=== PATIENT | female | born 1975 | race Caucasian/White ===

== ENCOUNTER 2018-01-09 11:13 | Inpatient (IN) | payer BC ==
[~2018-01-09] VITALS: Ht 165.1 cm; Wt 68.3 kg
[2018-01-09 12:15] VITALS: BP 115/75
[2018-01-09 12:35] VITALS: BP 115/75
[2018-01-09] MEDS ORDERED: CEFTRIAXONE SOD 1 GM VIAL IV SCH (13:45)
[2018-01-09] MEDS ORDERED: CLINDAMYCIN PHOS 900MG/ 50ML 50 ML IV SCH (14:00)
[2018-01-09 14:22] LABS: BASOPHILS # (AUTO) 0.1 (0.0-0.1); BASOPHILS % 1.2 % (0.0-1.0); EOSINOPHILS # (AUTO) 0.1 (0.0-0.4); EOSINOPHILS % 2.1 % (0.0-6.0); HEMATOCRIT 36.8 % (34.2-44.1); HEMOGLOBIN 12.6 g/dL (12.0-16.0); LYMPHOCYTES # (AUTO) 2.3 (1.0-3.2); LYMPHOCYTES % 35.8 % (18.0-39.1); MEAN CORPUSCULAR HEMOGLOBIN 32.5 pg (28-32); MEAN CORPUSCULAR HGB CONC 34.2 g/dL (31-35); MEAN CORPUSCULAR VOLUME 94.8 fL (81-99); MONOCYTES # (AUTO) 0.6 (0.2-0.8); MONOCYTES % 9.5 % (4.4-11.3); NEUTROPHILS # (AUTO) 3.3 (2.1-6.9); NEUTROPHILS % 50.6 % (38.7-80.0); PLATELET COUNT 318 x10e3/uL (140-360); RED BLOOD COUNT 3.88 x10e6/uL (3.6-5.1); RED CELL DISTRIBUTION WIDTH 12.2 % (11.7-14.4)
[2018-01-09] MEDS: DEXTROSE 5%/LACTATED RINGERS 1,000 ML IV SCH ×2 (14:30→22:26)
[2018-01-09 14:59] LABS: ALANINE AMINOTRANSFERASE 14 IU/L (0-55); ALBUMIN 3.6 g/dL (3.5-5.0); ALBUMIN/GLOBULIN RATIO 1.2 (0.8-2.0); ALKALINE PHOSPHATASE 57 IU/L (40-150); ANION GAP 14.8 mmol/L (8-16); BLOOD UREA NITROGEN 14 mg/dL (7-26); BUN/CREATININE RATIO 19 (6-25); CALCIUM 9.5 mg/dL (8.4-10.2); CARBON DIOXIDE 29 mmol/L (22-29); CHLORIDE 100 mmol/L (98-107); CREATININE, SERUM 0.73 mg/dL (0.57-1.11); EST GLOMERULAR FILTRATION RATE > 60 ML/MIN (60-); GLUCOSE 83 mg/dL (74-118); POTASSIUM 3.8 mmol/L (3.5-5.1); SODIUM 140 mmol/L (136-145)
[2018-01-09 15:58] VITALS: BP 96/55
[2018-01-09] MEDS: VANCOMYCIN HCL 1.25 GM in SODIUM CHLORIDE 0.9% 250ML 300 ML IV SCH (17:15)
[2018-01-09] MEDS: FAMOTIDINE 20 MG TAB PO SCH (17:15)
--- NOTE | 2018-01-09 17:44 | Consultation ---
DATE OF CONSULTATION: January 09, 2018 REASON FOR CONSULTATION: Salivary gland infection, cellulitis and myositis of the face. This patient who is a very pleasant 42 year old who has a history of Sjogren syndrome and Binh's syndrome, on amiodarone, apparently 10 days ago or so or probably 2 weeks, she ramirez been having tooth problems. She went to the oral surgeon who did surgery. Apparently, he told her that there was a nerve around the tooth. He had to do extensive surgery. This was removed. But, however, she started having to severe pain. She went back to see him. He told her that there is a stone in the salivary gland after doing a CT and that it is infected. She went to see ENT, Dr. Laboy, who gave her IV Rocephin. She underwent removal of the stone, which was large. Because she had a history of Sjogren syndrome, apparently she had this for a while. She was on Rocephin and steroid along with oral clindamycin, but in spite of that it has been getting progressively worse with swelling and redness of the neck. CT scan was done and showed that she had inflammation and probably infection of the muscle around it. She was sent to the emergency room. Infectious disease was consulted. The patient said that she is having pain, as well as swelling in her right side of the neck and the jaw. Patient is being admitted and infectious disease was consulted. I do not have any other record as an outpatient. All that was from the patient. She is a very knowledgeable patient. PAST MEDICAL HISTORY: Significant for Sjogren syndrome and Binh's disease. She is seeing someone downtown. SOCIAL HISTORY: There is no smoking, drug abuse or alcohol abuse. FAMILY HISTORY: Significant for Binh's disease also. REVIEW OF SYSTEMS HEENT: She does have some headache. She had significant discomfort in her throat. There is no difficulty swallowing. Her voice is funny. Normocephalic. Not icteric. NECK: Supple. CHEST: Clear bilaterally. HEART: S1 and S2. No S3, S4 or murmur. ABDOMEN: Soft. Bowel sounds present. No tenderness. EXTREMITIES: No edema. Her white count is 6.5, hemoglobin 12. Sodium 140, potassium 3.8, creatinine 0.75. According to the patient, she has muscle infection in the back of her throat. IMPRESSIO: Pharyngitis with involvement of the muscle, failing Rocephin and clindamycin. Patient was changed to vancomycin and Zosyn. The patient is immunocompromised. Will obtain computerized tomography of the neck and face. Will await blood cultures. Will obtain vancomycin trough on the 4th dose. Will follow with you. Job#: [id number] MANUELITO
[2018-01-09] MEDS: PIPER-TAZ 3.375 GM 50 ML IV SCH (18:28)
[2018-01-09 19:20] VITALS: BP 100/53
[2018-01-09 20:00] VITALS: BP 100/53
[2018-01-09] MEDS: ACETAMINOPHEN 325 MG TAB PO PRN (20:39)
--- NOTE | 2018-01-09 22:06 | Consultation ---
DATE OF CONSULTATION: January 09, 2018 HISTORY OF PRESENT ILLNESS: This 42-year-old woman presents with a history of her a right third molar extraction approximately 3 weeks ago. She did well on immediate postoperative period, but approximately 1 week after the extraction she developed right-sided facial pain and swelling. No antibiotics were given postoperatively or after the initiation of the swelling. Subsequent workup by the oral surgeon showed a large submandibular stone and she was referred for evaluation and treatment. It was felt that the stone was possibly the etiology for the pain and swelling. On presentation to the office approximately 1 week ago, she was found have a large submandibular duct stone which was excised in the office. Subsequent pathology showed inflammatory changes only with no evidence of neoplasm. She did well for the first few hours after surgery, but then became progressively more sore and was unable to tolerate p.o. intake. She was treated with outpatient IV fluids and IV Rocephin as well as Decadronl, which was repeated on the second and third postoperative day. CT scan obtained on January 08, 2018 showed inflammatory changes within the floor of mouth, which were relatively mild and stranding of the masseter muscle, but no abscess formation. CT scan also showed complete extraction of the third molar with no evidence of bony erosion. Patient was admitted for continued IV antibiotic therapy as she had failed aggressive outpatient medical management. ASSESSMENT: Right submandibular and masseter cellulitis with no drainable abscess. PLAN: Continuation of current therapy per hospitalist and infectious disease consultants. Job#: [id number] VAS
[2018-01-10] VITALS (9 sets, daily range): BP systolic 101–128; BP diastolic 49–79
[2018-01-10] MEDS: PIPER-TAZ 3.375 GM 50 ML IV SCH ×4 (00:01→18:15)
[2018-01-10] MEDS: HYDROCODONE/APAP 5MG-325MG TAB PO PRN ×4 (00:12→21:01)
[2018-01-10 05:17] LABS: BASOPHILS # (AUTO) 0.1 (0.0-0.1); EOSINOPHILS # (AUTO) 0.2 (0.0-0.4); HEMATOCRIT 36.2 % (34.2-44.1); HEMOGLOBIN 12.7 g/dL (12.0-16.0); LYMPHOCYTES # (AUTO) 2.3 (1.0-3.2); LYMPHOCYTES % 46.6 % (18.0-39.1); MEAN CORPUSCULAR HEMOGLOBIN 32.6 pg (28-32); MEAN CORPUSCULAR HGB CONC 35.1 g/dL (31-35); MEAN CORPUSCULAR VOLUME 93.1 fL (81-99); MONOCYTES # (AUTO) 0.7 (0.2-0.8); MONOCYTES % 13.1 % (4.4-11.3); NEUTROPHILS # (AUTO) 1.8 (2.1-6.9); NEUTROPHILS % 34.9 % (38.7-80.0); PLATELET COUNT 305 x10e3/uL (140-360); RED BLOOD COUNT 3.89 x10e6/uL (3.6-5.1); RED CELL DISTRIBUTION WIDTH 12.2 % (11.7-14.4)
[2018-01-10 05:32] LABS: BLOOD UREA NITROGEN 10 mg/dL (7-26); BUN/CREATININE RATIO 14 (6-25); CALCIUM 9.1 mg/dL (8.4-10.2); CARBON DIOXIDE 26 mmol/L (22-29); CHLORIDE 104 mmol/L (98-107); CREATININE, SERUM 0.71 mg/dL (0.57-1.11); EST GLOMERULAR FILTRATION RATE > 60 ML/MIN (60-); GLUCOSE 62 mg/dL (74-118); MAGNESIUM 1.8 MG/DL (1.3-2.1); SODIUM 141 mmol/L (136-145)
[2018-01-10] MEDS: VANCOMYCIN HCL 1.25 GM in SODIUM CHLORIDE 0.9% 250ML 300 ML IV SCH ×3 (06:33→20:35)
[2018-01-10] MEDS: DEXTROSE 5%/LACTATED RINGERS 1,000 ML IV SCH ×2 (07:30→08:24)
[2018-01-10] MEDS: FAMOTIDINE 20 MG TAB PO SCH ×2 (08:10→18:15)
[2018-01-10] MEDS: AZATHIOPRINE 50 MG TAB PO SCH (14:02)
--- NOTE | 2018-01-10 15:31 | History and Physical ---
The patient does not have a local PCP. CHIEF COMPLAINT: Swelling, erythema of right neck and face. The patient was sent in by Dr. Laboy who saw her as an outpatient. HISTORY OF PRESENT ILLNESS: Ms Hernandez is a 42-year-old lady who had a 3rd right molar extraction approximately 2 weeks ago, initially did well but then started developing some pain and swelling in the area which extended into the masseter area of the right cheek and right upper neck with swelling and erythema and pain. Patient was initially started on clindamycin and Keflex by the oral surgeon, was then referred to Dr. Laboy for ear, nose, and throat, who gave the patient Rocephin in the office and then sent the patient in for IV antibiotics. REVIEW OF SYSTEMS: She has had some low-grade fever. She denies chills or weight loss. She denies sinus congestion or sore throat. She denies right jaw pain. She denies chest pain or palpitations. She denies shortness breath, wheezing, or cough. She denies abdominal pain, nausea, vomiting, or melena. She denies dysuria or flank pain. She denies rash or pruritus. She denies joint pain or swelling. She denies bleeding or bruising. She denies headache, vertigo, or loss of consciousness. She denies depression, agitation, homicide, or suicidal ideation. PAST MEDICAL HISTORY: Significant for Behcet's syndrome and Sjogren's disease for which she takes a medicine for the Sjogren's, I think it is Evoxac, and she takes Imuran 50 mg daily for the Behcet's syndrome. She has a distant history of , cervical discectomy with fusion, and she had a tummy tuck done in 2016. ALLERGIES: SHE HAS NO KNOWN DRUG ALLERGIES. FAMILY HISTORY: Unremarkable. SOCIAL HISTORY: The patient is . [place] Citizen is her primary language. She does not smoke, drink, or use illegal drugs, and she is generally independently functioning. PHYSICAL EXAM PSYCHIATRIC: She is alert and oriented x3, with normal mood and affect. CONSTITUTIONAL: She has a normal body habitus. She is in no acute distress. VITAL SIGNS: As follows; blood pressure 114/49, pulse 83 and regular, respiratory rate 14, O2 sat 100% on room air, temperature 99.5. HEENT: Her head is atraumatic. Her eyes are anicteric with clear conjunctiva. Ears and nose are without erythema or discharge. Oropharynx is clear. She has some swelling and erythema on the left cheek in the masseter area. NECK: Supple. She also has some swelling and erythema in the upper right neck, with no mass or thyromegaly. LYMPHATIC: She has no palpable cervical, axillary, or inguinal adenopathy. CARDIOVASCULAR: Her heart has a regular rate and rhythm, without murmur or extra heart sound. She has no carotid bruits. She has no peripheral edema. She has palpable dorsal pedal pulses. RESPIRATORY: Lungs are clear to auscultation and percussion, with normal respiratory effort. GASTROINTESTINAL: Abdomen is soft without organomegaly, masses, or tenderness. She has normal bowel sounds present. CUTANEOUS: Her skin is warm and dry to touch with no rash or skin breakdown. She has some erythema of the right face and neck as noted. MUSCULOSKELETAL: Her joints are in normal alignment without erythema or swelling. She has no calf tenderness. NEUROLOGIC: Exam is nonfocal with intact cranial nerves and no motor or sensory deficits. DIAGNOSTIC STUDIES: CBC shows a white count of 5 with a normal differential. Hemoglobin 12.7, hematocrit 36.2, platelet count 305,000. Her chemistry shows normal electrolytes. CO2 is 26, creatinine is 0.71, BUN 10, glucose 62. Transaminases, bilirubin, alk phos are normal. IMPRESSION AND PLAN 1. Cellulitis of the right face and neck. The patient was started on intravenous vancomycin and Zosyn. ENT has been consulted. CT scan does not show any fluid collection. It was done as an outpatient. 2. Behcet's syndrome/Sjogren's syndrome. The patient will use her own meds for the Sjogren's because we do not have that medicine on formulary here. We will continue her Imuran for Behcet's syndrome. 3. For prophylaxis, the patient will be on sequential compression devices for deep venous thrombosis prophylaxis and Pepcid for gastrointestinal prophylaxis. Job#: [id number] LPA
[2018-01-10] MEDS ORDERED: SODIUM CHLORIDE 0.9% 500ML 500 ML ONE (17:19)
[2018-01-10] MEDS: ONDANSETRON HCL INJ 2 MG/ML VIAL IV PRN (18:54)
[2018-01-11] VITALS (7 sets, daily range): BP systolic 110–134; BP diastolic 50–75
[2018-01-11] MEDS: PIPER-TAZ 3.375 GM 50 ML IV SCH ×4 (00:01→16:53)
[2018-01-11] MEDS: HYDROCODONE/APAP 5MG-325MG TAB PO PRN ×3 (03:44→20:20)
[2018-01-11 05:43] LABS: BASOPHILS # (AUTO) 0.1 (0.0-0.1); EOSINOPHILS # (AUTO) 0.2 (0.0-0.4); EOSINOPHILS % 3.4 % (0.0-6.0); HEMATOCRIT 35.3 % (34.2-44.1); HEMOGLOBIN 12.4 g/dL (12.0-16.0); LYMPHOCYTES # (AUTO) 1.8 (1.0-3.2); LYMPHOCYTES % 30.3 % (18.0-39.1); MEAN CORPUSCULAR HGB CONC 35.1 g/dL (31-35); MEAN CORPUSCULAR VOLUME 93.9 fL (81-99); MONOCYTES # (AUTO) 0.7 (0.2-0.8); MONOCYTES % 11.1 % (4.4-11.3); NEUTROPHILS # (AUTO) 3.1 (2.1-6.9); NEUTROPHILS % 52.8 % (38.7-80.0); PLATELET COUNT 281 x10e3/uL (140-360); RED BLOOD COUNT 3.76 x10e6/uL (3.6-5.1); RED CELL DISTRIBUTION WIDTH 12.2 % (11.7-14.4)
[2018-01-11 05:58] LABS: ANION GAP 12.7 mmol/L (8-16); BLOOD UREA NITROGEN 12 mg/dL (7-26); BUN/CREATININE RATIO 15 (6-25); CARBON DIOXIDE 25 mmol/L (22-29); CHLORIDE 101 mmol/L (98-107); CREATININE, SERUM 0.78 mg/dL (0.57-1.11); EST GLOMERULAR FILTRATION RATE > 60 ML/MIN (60-); GLUCOSE 85 mg/dL (74-118); POTASSIUM 3.7 mmol/L (3.5-5.1); SODIUM 135 mmol/L (136-145); VANCOMYCIN,RANDOM 15.5 ug/mL
[2018-01-11] MEDS: FAMOTIDINE 20 MG TAB PO SCH ×2 (10:00→16:52)
[2018-01-11] MEDS: VANCOMYCIN HCL 1.25 GM in SODIUM CHLORIDE 0.9% 250ML 300 ML IV SCH ×2 (10:00→20:30)
[2018-01-11] MEDS: MORPHINE SULFATE 2 MG/ML SYR IV PRN (10:15)
[2018-01-11] MEDS: AZATHIOPRINE 50 MG TAB PO SCH (10:31)
--- NOTE | 2018-01-11 11:04 | Diagnostic Imaging Report ---
EXAMINATION: CHEST X-RAY LINE PLACEMENT COMPARISON: None INDICATION: Line placement DISCUSSION: Frontal view of the chest obtained at 1021 hours. HEART AND MEDIASTINUM: The cardiomediastinal silhouette is unremarkable. LINES: Right PICC line terminates in the SVC without pneumothorax LUNGS: The lungs are well inflated and clear. No pneumonia or pulmonary edema. PLEURA: No pleural effusion or pneumothorax. BONES AND SOFT TISSUES: Fusion plate in the lower cervical spine is incompletely imaged. The soft tissues are normal. IMPRESSION: Right PICC line as described above. No acute cardiopulmonary process. Signed by: Dr. Inderjit Pacheco MD on 01/11/2018 11:00 AM
[2018-01-11] MEDS ORDERED: CEVIMELINE PO (11:27)
[2018-01-11] MEDS ORDERED: CEVIMELINE PO SCH (15:00)
[2018-01-11] MEDS: ACETAMINOPHEN 325 MG TAB PO PRN (18:19)
--- NOTE | 2018-01-11 19:13 | Diagnostic Imaging Report ---
History: Blurred vision after PICC placement Comparison studies: None Technique: Axial images were obtained from the skull base to the vertex. Coronal and sagittal reconstructions obtained from the axial data. Dose modulation, iterative reconstruction, and/or weight based adjustment of the mA/kV was utilized to reduce the radiation dose to as low as reasonably achievable. Findings: Scalp/skull: No abnormalities. No fractures, blastic or lytic lesions. Extra-axial spaces: No masses. No fluid collections. Brain sulci: Appropriate for age. Ventricles: Normal in size and configuration. No hydrocephalus. Parenchyma: No abnormal densities. No masses, hemorrhage, acute or chronic cortical vascular insults. Sellar/suprasellar region: No abnormalities Craniocervical junction: Patent foramen magnum. No Chiari one malformation. IMPRESSION: No abnormalities . Signed by: DR Brian George M.D. on 01/11/2018 7:10 PM
[2018-01-11] MEDS: ONDANSETRON HCL INJ 2 MG/ML VIAL IV PRN (20:15)
[2018-01-11] MEDS: CEVIMELINE 30 MG PO SCH (21:00)
[2018-01-12] VITALS: BP 96/61
[2018-01-12] MEDS: PIPER-TAZ 3.375 GM 50 ML IV SCH ×4 (00:19→17:45)
[2018-01-12 04:00] VITALS: BP 109/55
[2018-01-12] MEDS: MORPHINE SULFATE 2 MG/ML SYR IV PRN (04:25)
[2018-01-12 04:35] LABS: BASOPHILS # (AUTO) 0.1 (0.0-0.1); BASOPHILS % 1.1 % (0.0-1.0); EOSINOPHILS # (AUTO) 0.2 (0.0-0.4); EOSINOPHILS % 3.8 % (0.0-6.0); HEMATOCRIT 36.8 % (34.2-44.1); HEMOGLOBIN 12.8 g/dL (12.0-16.0); LYMPHOCYTES # (AUTO) 1.8 (1.0-3.2); LYMPHOCYTES % 28.1 % (18.0-39.1); MEAN CORPUSCULAR HEMOGLOBIN 32.5 pg (28-32); MEAN CORPUSCULAR HGB CONC 34.8 g/dL (31-35); MEAN CORPUSCULAR VOLUME 93.4 fL (81-99); MONOCYTES # (AUTO) 0.7 (0.2-0.8); MONOCYTES % 10.8 % (4.4-11.3); NEUTROPHILS # (AUTO) 3.5 (2.1-6.9); NEUTROPHILS % 55.3 % (38.7-80.0); PLATELET COUNT 284 x10e3/uL (140-360); RED BLOOD COUNT 3.94 x10e6/uL (3.6-5.1); RED CELL DISTRIBUTION WIDTH 12.2 % (11.7-14.4)
[2018-01-12 04:51] LABS: ANION GAP 11.9 mmol/L (8-16); BLOOD UREA NITROGEN 11 mg/dL (7-26); BUN/CREATININE RATIO 14 (6-25); CALCIUM 9.2 mg/dL (8.4-10.2); CARBON DIOXIDE 26 mmol/L (22-29); CHLORIDE 105 mmol/L (98-107); CREATININE, SERUM 0.77 mg/dL (0.57-1.11); EST GLOMERULAR FILTRATION RATE > 60 ML/MIN (60-); GLUCOSE 88 mg/dL (74-118); MAGNESIUM 1.7 MG/DL (1.3-2.1); POTASSIUM 3.9 mmol/L (3.5-5.1); SODIUM 139 mmol/L (136-145)
[2018-01-12] MEDS: HYDROCODONE/APAP 5MG-325MG TAB PO PRN ×2 (05:10→11:29)
[2018-01-12] MEDS ORDERED: TYLENOL # 31 EA PO (06:57)
[2018-01-12] MEDS ORDERED: MAGNESIUM HYDROXIDE 30 ML UDC PO ONE (07:00)
[2018-01-12 07:10] VITALS: BP 118/72
[2018-01-12] MEDS: FAMOTIDINE 20 MG TAB PO SCH ×2 (07:59→16:39)
[2018-01-12] MEDS: VANCOMYCIN HCL 1.25 GM in SODIUM CHLORIDE 0.9% 250ML 300 ML IV SCH (08:22)
[2018-01-12] MEDS: DOCUSATE SODIUM 100 MG CAP PO SCH ×2 (08:55→16:39)
[2018-01-12] MEDS: CEVIMELINE 30 MG PO SCH ×2 (08:55→15:50)
[2018-01-12] MEDS: AZATHIOPRINE 50 MG TAB PO SCH (08:55)
[2018-01-12 09:00] VITALS: BP 118/72
[2018-01-12] MEDS ORDERED: AZATHIOPRINE50 MG PO (09:06)
[2018-01-12] MEDS: ONDANSETRON HCL INJ 2 MG/ML VIAL IV PRN ×3 (09:25→14:50)
[2018-01-12 11:49] VITALS: BP 124/71
--- NOTE | 2018-01-12 13:22 | Discharge Summary ---
ADMISSION DIAGNOSES 1. Cellulitis of the right face and neck. 2. Behcet syndrome. 3. Sjogren syndrome. HISTORY: Patient has a history of Behcet syndrome and Sjogren disease, surgical history of , cervical diskectomy with fusion, and a tummy tuck in 2016. HOSPITAL COURSE: A 42-year-old female had a third right molar extraction approximately 2 weeks ago. She initially did well but then started developing pain and swelling in the area which extended into the right masseter area of the right cheek and right upper neck with swelling and erythema. Patient was initially started on clindamycin and Keflex by the oral surgeon and was then referred to Dr. Laboy, who gave the patient Rocephin in the office and then sent the patient to the ER for antibiotics. On admission patient was started on vancomycin and Zosyn. ID was consulted due to failed outpatient treatment. Patient had a right PICC line placed for long-term antibiotics. CT of the brain showed no abnormalities as the patient complained of seeing spots and being dizzy. CT scan that was done outpatient showed no fluid collection. Patient is doing well, and pain is improving on the IV antibiotics. Per ID patient will need 2 more weeks of vancomycin and Merrem in office. Patient will discharge home today and follow up with Dr. Pan and Dr. Laboy as discussed as well as primary care in 1 to 2 weeks. Patient and understand discharge instructions and agree to plan. Vital signs stable, patient afebrile. Patient will discharge home with vancomycin and Merrem IV for 2 weeks as well as Tylenol No. 3 p.r.n. Dictated by: Krystle Gomez NP JEANA PARSONS MD Job#: [id number]
[2018-01-12 16:54] VITALS: BP 118/71
== END 2018-01-12 19:00 | disposition home or self-care (01) | DRG 155 ==
LOC: IMCU 11:39 → OBSVTOIN 01-10 12:12 → MED/SURG 01-10 15:29
PROVIDERS: ADMIT Internal Medicine; ATTEND Internal Medicine
PROC: 02HV33Z Insertion of Infusion Device into Superior Vena Cava, Percutaneous Approach (ICD-10-PCS; principal; 2018-01-11)
DX: K11.3 Abscess of salivary gland (principal); K12.2 Cellulitis and abscess of mouth; L03.211 Cellulitis of face; L03.221 Cellulitis of neck; M35.2 Behcet's disease; E87.1 Hypo-osmolality and hyponatremia; M60.08 Infective myositis, other site; M35.00 Sjogren syndrome, unspecified; J02.9 Acute pharyngitis, unspecified; K59.00 Constipation, unspecified
CPT/HCPCS: 36415; 36569; 70450; 71045; 80048; 80053; 80202; 83735; 84443; 85025; G0378; J0696; J2270; J2405; J2543; J3370; J7040; J7050; J7120

== ENCOUNTER 2020-11-20 16:44 | Emergency (ER) | payer BC ==
[~2020-11-20] VITALS: Ht 165.1 cm; Wt 68.0 kg
[~2020-11-20 16:44] MED LIST: AZATHIOPRINE50 MG PO; CEVIMELINE PO; TYLENOL # 31 EA PO
[2020-11-20 17:59] LABS: BASOPHILS # (AUTO) 0.1 (0.0-0.1); BASOPHILS % 0.8 % (0.0-1.0); EOSINOPHILS # (AUTO) 0.1 (0.0-0.4); HEMATOCRIT 39.9 % (34.2-44.1); HEMOGLOBIN 13.6 g/dL (12.0-16.0); LYMPHOCYTES # (AUTO) 1.7 (1.0-3.2); LYMPHOCYTES % 25.3 % (18.0-39.1); MEAN CORPUSCULAR HEMOGLOBIN 32.5 pg (28-32); MEAN CORPUSCULAR HGB CONC 34.1 g/dL (31-35); MEAN CORPUSCULAR VOLUME 95.2 fL (81-99); MONOCYTES # (AUTO) 0.6 (0.2-0.8); MONOCYTES % 8.9 % (4.4-11.3); NEUTROPHILS # (AUTO) 4.1 (2.1-6.9); NEUTROPHILS % 62.7 % (38.7-80.0); PLATELET COUNT 337 x10e3/uL (140-360); RED BLOOD COUNT 4.19 x10e6/uL (3.6-5.1); RED CELL DISTRIBUTION WIDTH 12.4 % (11.7-14.4)
[2020-11-20 18:17] LABS: ALBUMIN 4.4 g/dL (3.5-5.0); ALBUMIN/GLOBULIN RATIO 1.4 (0.8-2.0); ANION GAP 15.3 mmol/L (8-16); CALCIUM 9.1 mg/dL (8.4-10.2); CREATININE, SERUM 0.66 mg/dL (0.57-1.11); POTASSIUM 3.3 mmol/L (3.5-5.1)
[2020-11-20 18:23] LABS: CREATINE KINASE MB 0.7 ng/mL (0-5.0)
[2020-11-20] MEDS ORDERED: SODIUM CHLORIDE 0.9% 50ML 50 ML ONE (18:32)
[2020-11-20] MEDS ORDERED: IOPAMIDOL 370 MG/ML 200 ML INFUS..BTL INJ ONE (18:32)
[2020-11-20] MEDS ORDERED: KETOROLAC TROMETHAMINE 30 MG/ML VIAL IV STA (19:59)
[2020-11-20 20:00] LABS: CLARITY,URINE CLEAR (CLEAR); COLOR,URINE YELLOW (YELLOW); LEUKOCYTE ESTERASE ,URINE NEGATIVE (NEGATIVE); NITRITE,URINE NEGATIVE (NEGATIVE); PROTEIN,URINE DIPSTICK NEGATIVE (NEGATIVE)
[2020-11-20 20:01] LABS: KETONES,URINE 1+ (NEGATIVE); URINE UROBILINOGEN 0.2 mg/dL (0.2 - 1)
[2020-11-20] MEDS ORDERED: ONDANSETRON HCL INJ 2MG/ML 2ML 2 MG/ML VIAL IV STA (20:06)
[2020-11-20 20:19] LABS: EPITHELIAL CELLS,URINE RARE /LPF
[2020-11-20] MEDS ORDERED: DICYCLOMINE HCL20 MG PO (20:34)
[2020-11-20] MEDS ORDERED: PANTOPRAZOLE SO40 MG PO (20:34)
[2020-11-20] MEDS ORDERED: PREDNISONE20 MG PO (20:44)
[2020-11-20] MEDS ORDERED: KETOROLAC TROME10 MG PO (20:44)
[2020-11-20] MEDS ORDERED: HYDROCODONE/APAP 7.5MG-325MG 1 EA TAB PO STA (20:57)
[2020-11-20 21:18] VITALS: BP 115/65
== END 2020-11-20 21:20 | disposition home or self-care (01) ==
LOC: ER 17:40
DX: R10.11 Right upper quadrant pain (principal); D89.89 Other specified disorders involving the immune mechanism, not elsewhere classified
CPT/HCPCS: 36415; 71260; 74177; 80053; 81001; 82550; 82553; 84484; 85025; 93005; 99284; J1885; J2405; Q9967